=== PATIENT | male | born 1965 | race Caucasian/White ===

== ENCOUNTER 2019-02-13 18:56 | Emergency (ER) | payer OTHER ==
[~2019-02-13] VITALS: Ht 180.3 cm; Wt 90.7 kg
[~2019-02-13 18:56] MED LIST: LANTUS100 UNITS/ SUB-Q; METFORMIN HCL1000 MG PO; ZOFRAN ODT4 MG SL
--- OUTSIDE RECORDS SUMMARY | 2019-02-13 18:58 | XMS ---
PreManage Notification: LILLI SCHUMACHER Security [employer] Events No recent Security Events currently on file [facility] There are no care providers on record at this time. Ruben has no Care Guidelines for this patient. Be VISIT COUNT (12 MO.) 1 CAROL Milner TOTAL 1 NOTE: Visits indicate total known visits. ED/C VISIT TRACKING (12 MO.) 02/13/2019 18:57 CAROL Molina OR TYPE: Emergency COMPLAINT: - BACK INJURY INPATIENT VISIT TRACKING (12 MO.) No inpatient visits to display in this time frame [email or web address]
[2019-02-13] MEDS ORDERED: OZEMPIC1 MG/0.75 (19:07)
== END 2019-02-13 21:12 | disposition home or self-care (01) ==
LOC: ED 18:56
DX: S30.1XXA Contusion of abdominal wall, initial encounter (principal); Y04.8XXA Assault by other bodily force, initial encounter; E11.9 Type 2 diabetes mellitus without complications; Y99.0 Civilian activity done for income or pay; Z79.899 Other long term (current) drug therapy; Z79.4 Long term (current) use of insulin
CPT/HCPCS: 74177; 80053; 81001; 85025; 99284-25; Q9967